=== PATIENT | male | born 1970 | race Caucasian/White ===

== ENCOUNTER 2022-03-22 12:10 | Emergency (ER) | payer OTHER ==
[2022-03-22] MEDS ORDERED: Lidocaine Viscous Sol 2% 15 ml UD Cup ONE (12:37)
[2022-03-22] MEDS ORDERED: Milk Of Magnesia 30 ML UDCUP ONE (12:37)
[2022-03-22] MEDS ORDERED: Mag-Al 1200 mg/1200 mg/30 ML UDCUP ONE (12:38)
[2022-03-22] MEDS ORDERED: Ondansetron PF 4 MG/2 ML Vial ONE (12:49)
[2022-03-22 12:59] LABS: #Eosinphils 0.1 thou/uL (0.0-0.7); #Lymphocytes 0.9 thou/uL (1.20-3.40); #Monocytes 0.5 thou/uL (0.11-0.59); #Neutrophils 10.2 thou/uL (1.40-6.50); %Eosinophils 0.6 % (0.0-10.0); %Lymphocytes 7.9 % (21.0-51.0); %Neutrophils 87.5 % (42.0-75.0); Hemoglobin 17.5 g/dL (14.0-18.0); Mean Corpuscular HGB CONC 32.8 g/dL (32.0-36.0); Mean Corpuscular Hemoglobin 32.1 pg (27.0-31.0); Mean Corpuscular Volume 97.8 fL (78.0-98.0); Mean Platelet Volume 8.3 fL (7.4-10.4); Platelet Count 204 thou/uL (130-400); RBC Distribution Width 12.5 % (11.5-14.5); Red Blood Cell (RBC) Count 5.45 mill/uL (4.70-6.10); White Blood Cell (WBC) Count 11.6 thou/uL (4.8-10.8)
[2022-03-22 13:24] LABS: ALT (SGPT) 35 U/L (8-55); AST (SGOT) 25 U/L (5-34); Albumin 4.3 g/dL (3.5-5.0); Alkaline Phosphatase 58 U/L (40-110); Anion Gap 12 mmol/L (10-20); BUN (Urea Nitrogen) 8 mg/dL (8.9-20.6); Bilirubin, Total 0.5 mg/dL (0.2-1.2); Calc. Creatinine Clearance 0 mL/min (70-130); Calcium 9.3 mg/dL (7.8-10.44); Carbon Dioxide 26 mmol/L (22-29); Chloride 104 mmol/L (98-107); Globulin 2.7 g/dL (2.4-3.5); Glucose 117 mg/dL (70-105); Lipase 21 U/L (8-78); Magnesium 1.8 mg/dL (1.6-2.6); Potassium 3.9 mmol/L (3.5-5.1); Sodium 138 mmol/L (136-145)
[2022-03-22] MEDS ORDERED: diphenhydrAMINE 50 MG/ML VIAL ONE (14:21)
[2022-03-22] MEDS ORDERED: Metoclopramide HCl 10 MG/2 ML VIAL ONE (14:21)
== END 2022-03-22 16:56 | disposition home or self-care (01) ==
LOC: ERS 12:10
DX: F11.23 Opioid dependence with withdrawal (principal); R11.10 Vomiting, unspecified
CPT/HCPCS: 80053; 83690; 83735; 85025; 96361; 96365; 96366; 96375; J1200; J2405; J2765